=== PATIENT | male | born 1990 | race Caucasian/White ===

== ENCOUNTER 2017-08-17 18:19 | Emergency (ER) | payer OTHER ==
[2017-08-17] MEDS ORDERED: BENZOCAINE UNIT DOSE SPRAY HURRICAINE MM ONE (18:27)
[2017-08-17] MEDS ORDERED: TDAP ADULT 0.5 ML INJ (BOOSTRIX) IM ONE (18:27)
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
[2017-08-17] MEDS ORDERED: IBUPROFEN 600 MG TAB PO ONE (18:33)
[2017-08-17 20:04] VITALS: BP 152/95
== END 2017-08-17 20:03 | disposition home or self-care (01) ==
LOC: EEVIPCON 18:19
PROC: 0CQ0XZZ Repair Upper Lip, External Approach (ICD-10-PCS; principal; 2017-08-17)
DX: S01.511A Laceration without foreign body of lip, initial encounter (principal); F17.200 Nicotine dependence, unspecified, uncomplicated; Z23 Encounter for immunization; Y04.0XXA Assault by unarmed brawl or fight, initial encounter

== ENCOUNTER 2017-12-27 08:41 | Inpatient (IN) | payer MEDICAID, OTHER ==
--- NOTE | 2017-12-27 08:50 | EDPHY ---
H & P Time Seen by Provider: 12/27/17 08:47 HPI/ROS: CHIEF COMPLAINT: Chest pain HISTORY OF PRESENT ILLNESS: The patient is a 27-year-old man who was being arrested this morning for trespassing and burglary when he began complaining of chest pain. He admits to methamphetamine abuse yesterday but none today. Paramedics were called and he is brought to the emergency department. He was given aspirin EN route. EKG from paramedics and vital signs have been stable other than mild tachycardia. Patient is repeating my asking for drink water but otherwise denies complaints to me. Severity: Moderate Modifying factors: Improved initially with aspirin then returned. REVIEW OF SYSTEMS: Constitutional: denies: chills, fever, recent illness, recent injury EENTM: denies: blurred vision, double vision, nose congestion Respiratory: denies: cough, shortness of breath Cardiac: See HPI denies: chest pain, irregular heart rate, lightheadedness, palpitations Gastrointestinal/Abdominal: denies: abdominal pain, diarrhea, nausea, vomiting, blood streaked stools Genitourinary: denies: dysuria, frequency, hematuria, pain Musculoskeletal: denies: joint pain, muscle pain Skin: denies: lesions, rash, jaundice, bruising Neurological: denies: headache, numbness, paresthesia, tingling, dizziness, weakness Hematologic/Lymphatic: denies: blood clots, easy bleeding, easy bruising Immunologic/allergic: denies: HIV/AIDS, transplant 10 systems reviewed and negative except as noted EXAM: GENERAL: Well-appearing, well-nourished and in no acute distress. HEAD: Atraumatic, normocephalic. EYES: Pupils equal round and reactive to light, extraocular movements intact, sclera anicteric, conjunctiva are normal. ENT: TMs normal, nares patent, oropharynx clear without exudates. Moist mucous membranes. NECK: Normal range of motion, supple without lymphadenopathy or JVD. LUNGS: Breath sounds clear to auscultation bilaterally and equal. No wheezes rales or rhonchi. HEART: Regular rate and rhythm without murmurs, rubs or gallops. ABDOMEN: Soft, nontender, normoactive bowel sounds. No guarding, no rebound. No masses appreciated. BACK: No CVA tenderness, no spinal tenderness, step-offs or deformities EXTREMITIES: Normal range of motion, no pitting or edema. No clubbing or cyanosis. NEUROLOGICAL: Cranial nerves II through XII grossly intact. Normal speech, normal gait. 5/5 strength, normal movement in all extremities, normal sensation , normal reflexes PSYCH: Normal mood, normal affect. SKIN: Warm, dry, normal turgor, no visible rashes or lesions. Source: Patient, EMS - Medical/Surgical History Hx Asthma: No Hx Chronic Respiratory Disease: No Hx Diabetes: No Hx Cardiac Disease: No Hx Renal Disease: No Hx Cirrhosis: No Hx Alcoholism: No Hx HIV/AIDS: No Hx Splenectomy or Spleen Trauma: No Other PMH: none - Family History Significant Family History: No pertinent family hx - Social History Smoking Status: Never smoked Alcohol Use: Occasionally Drug Use: Other Constitutional: Initial Vital Signs Temperature (C) 37.4 C 12/27/17 08:53 Heart Rate 128 H 12/27/17 08:53 Respiratory Rate 16 12/27/17 08:53 Blood Pressure 125/93 H 12/27/17 08:53 O2 Sat (%) 91 L 12/27/17 08:53 O2 Delivery Mode Room Air Allergies/Adverse Reactions: No Known Allergies Allergy (Verified 12/27/17 10:31) Home Medications: Medication Instructions Recorded NK [No Known Home Meds] 08/17/17 Medical Decision Making - Diagnostics EKG Interpretation: An EKG obtained and was read and documented in trace view. Please see trace view for full reading and report. Sinus tachycardia, ST elevation anteriorly inconsistent from beat to beat Imaging: Discussed imaging studies w/ drill sharpener operator Radiologist ED Course/Re-evaluation: The patient remains tachycardic. His chest x-ray was read as bilateral pneumonia. I will initiate a sepsis workup. Will also repeat his EKG when his heart rate improves. There is some ST elevation anteriorly that is likely rate related. It is a consistent from beat to beat. 10:15 a.m. I discussed the case with Ashley who will accept to the medical service. Medical floor. The patient's heart rate is improving with fluids. Antibiotics have been ordered. Differential Diagnosis: Partial list of the Differential diagnosis considered include but were not limited to; arrhythmia, acute coronary disease, pneumothorax, polysubstance abuse and although unlikely based on the history and physical exam, I also considered pneumonia, trauma. Critical Care Time: Critical care time spent by me, Dr. Fowler exclusive with this patient was 35 minutes, exclusive of the PA time exclusive of procedures. The organ system that was at risk was pulmonary and cardiovascular and I gave IV fluids, antibiotics, consultation and admission to prevent worsening of the patient's condition - Data Points Laboratory Results: Laboratory Results 12/27/17 08:30 12/27/17 08:30 Medications Given: Acetaminophen (Tylenol) 500 - 1,000 mg PO Q6HRS PRN PRN Reason: Pain, Mild/Fever, Can Take PO Stop: 06/25/18 10:42 Last Admin: 12/28/17 21:10 Dose: 1,000 mg Benzonatate (Tessalon Pearles) 100 - 200 mg PO TID PRN PRN Reason: Cough, Mild Stop: 06/25/18 15:23 Last Admin: 12/28/17 14:44 Dose: 200 mg Guaifenesin (Mucinex) 600 mg PO BID DODIE Stop: 06/26/18 09:14 Last Admin: 12/28/17 21:10 Dose: 600 mg Azithromycin 500 mg/ Sodium (Chloride) 255 mls @ 255 mls/hr IV DAILY DODIE PRN Reason: Protocol Stop: 01/27/18 08:59 Last Admin: 12/28/17 08:55 Dose: 255 mls Sodium Chloride (Ns) 1,000 mls @ 150 mls/hr IV CONT DODIE Stop: 06/25/18 10:44 Last Admin: 12/28/17 10:47 Dose: 1,000 mls Ampicillin Sodium/Sulbactam (Sodium 3 gm/ Sodium Chloride) 100 mls @ 200 mls/ hr IV Q6HRS DODIE PRN Reason: Protocol Stop: 01/26/18 11:59 Last Admin: 12/28/17 23:21 Dose: 100 mls Nicotine (Nicoderm Cq) 21 mg TD DAILY DODIE Stop: 06/26/18 09:14 Last Admin: 12/28/17 10:16 Dose: 21 mg Ondansetron HCl (Zofran Odt) 4 mg PO Q4HRS PRN PRN Reason: Nausea/Vomiting, Use 1st Stop: 06/25/18 10:42 Last Admin: 12/28/17 02:01 Dose: 4 mg Tramadol HCl (Ultram) 50 mg PO Q6HRS PRN PRN Reason: Pain, Moderate Able to Take PO Stop: 06/26/18 09:13 Last Admin: 12/28/17 23:20 Dose: 50 mg Discontinued Medications Acetaminophen (Tylenol) 1,000 mg PO EDNOW ONE Stop: 12/27/17 09:09 Last Admin: 12/27/17 09:13 Dose: 1,000 mg Sodium Chloride (Ns) 2,000 mls @ 4,000 mls/hr 30 ml/kg infuse over 30 min ( 2000 ml) IV EDNOW ONE PRN Reason: Protocol Stop: 12/27/17 09:38 Last Admin: 12/27/17 09:16 Dose: 2,000 mls Azithromycin 500 mg/ Sodium (Chloride) 255 mls @ 255 mls/hr IV EDNOW ONE PRN Reason: Protocol Stop: 12/27/17 11:00 Last Admin: 12/27/17 10:59 Dose: 255 mls Ceftriaxone Sodium/Dextrose (Rocephin 1 Gm (Premix)) 50 mls @ 100 mls/hr IV EDNOW ONE PRN Reason: Protocol Stop: 12/27/17 10:29 Last Admin: 12/27/17 10:00 Dose: 50 mls Nicotine (Nicoderm Cq) 21 mg TD ONCE ONE Stop: 12/27/17 10:48 Last Admin: 12/27/17 11:00 Dose: 21 mg Departure - Departure Disposition: [facility] Acute Clinical Impression: Severe sepsis Pneumonia of both lower lobes Qualifiers: Pneumonia type: due to unspecified organism Qualified Code(s): J18.1 - Lobar pneumonia, unspecified organism Condition: Fair
[2017-12-27] MEDS ORDERED: ACETAMINOPHEN 500 MG TAB PO ONE (09:08)
[2017-12-27] MEDS ORDERED: NS 2,000 ML IV ONE (09:09)
--- NOTE | 2017-12-27 09:12 | CPEKG ---
Test Reason : OPEN Blood Pressure : / mmHG Vent. Rate : 129 BPM Atrial Rate : 130 BPM P-R Int : 158 ms QRS Dur : 074 ms QT Int : 285 ms P-R-T Axes : 020 036 047 degrees QTc Int : 418 ms Sinus tachycardia Probable left atrial enlargement ST elev, probable normal early repol pattern Confirmed by Jd Fowler ([id number]) on 12/27/2017 9:11:51 AM Referred By: Confirmed By:Jd Fowler
[2017-12-27 09:16] LABS: PLATELET COUNT 301 10^3/uL (150-400)
[2017-12-27 09:40] LABS: INR 1.07 (0.83-1.16); PROTIME(PATIENT) 14.1 SEC (12.0-15.0)
[2017-12-27] MEDS ORDERED: AZITHROMYCIN IV 500 MG in NS 250 ML IV ONE (10:01)
[2017-12-27] MEDS ORDERED: ONDANSETRON DISINTEGRATING 4 MG TAB PO PRN (10:43)
[2017-12-27] MEDS ORDERED: ONDANSETRON 4 MG/2 ML VIAL IVP PRN (10:43)
[2017-12-27] MEDS ORDERED: NICOTINE 21 MG/24 HR PATCH TD ONE (10:47)
--- NOTE | 2017-12-27 11:13 | GHP ---
DATE OF ADMISSION: 12/27/2017 Mr. Saeed is a 27-year-old gentleman with a history of meth use, who presents to the emergency depart ment with cough. He was actually being arrested for trespassing and burglary when he began complaini ng of chest pain. Upon presentation, he was found to be febrile. Further evaluation revealed bilateral lower lobe pneu monia. When I speak with the patient he is not particularly conversant. He is agitated with too muc h questioning. He acknowledges cough. It is not clear that he is having recent fevers or chills. He does smoke cigarettes. REVIEW OF SYSTEMS: Complete 10-point review of systems conducted negative as noted in the HPI. PAST MEDICAL HISTORY: Methamphetamine use. SOCIAL HISTORY: Methamphetamine use, uses cigarettes. FAMILY HISTORY: Reviewed and unremarkable. ALLERGIES: No known drug allergies. HOME MEDICATIONS: None. PHYSICAL EXAMINATION: PRESENTING VITALS: Temp 37.4 but became febrile to 38.5 in the emergency depa rtment, blood pressure 125/93, pulse 128, now 124, breathing 16 times a minute, 91% on room air. GEN ERAL: No acute distress, lying flat. HEENT: Sclerae anicteric. Oropharynx clear. Mucous membrane s are moist. There is poor dentition. NECK: Supple without lymphadenopathy or JVD. LUNGS: Show r honchi at the bases bilaterally. HEART: Tachycardic. S1, S2. ABDOMEN: Soft, nontender, nondisten ded. LOWER EXTREMITIES: No edema. Calves are nontender. SKIN: Without rash. NEUROLOGIC: Exam i s nonfocal. LABORATORY DATA: White count 18.7 with a left shift, hematocrit 44, platelets are 301,000, coags are normal. Venous lactate is elevated at 2.8. Chem-7 is normal. BUN and creatinine are 17 and 1.0. Chest x-ray interpreted by me shows bilateral airspace disease consistent with pneumonia. There is a greater infiltrate on the left. EKG interpreted by me shows sinus tachycardia with normal axis and intervals. No ST or T-wave changes. I discussed the case Dr. Jd Fowler. ASSESSMENT/PLAN: 27-year-old gentleman presents with sepsis and bilateral lower lobe pneumonia. 1. Sepsis. The source is lungs evidenced by fever, elevated lactate, leukocytosis source. He has r eceived IV fluids and antibiotics. We will follow his lactate to resolution. 2. Pneumonia with bilateral lower lobe pneumonia. We will send a respiratory virus panel. I worry about an aspiration event given his methamphetamine use. He was not tolerating greater questions. Dave forman received ceftriaxone in the emergency department. We will go ahead and switch that to Unasyn to co dev some anaerobes. 3. Methamphetamine use. We will follow. 4. Tobacco use. Will provide nicotine patch. DISPOSITION: Inpatient status, risk high. /[id number]/MODL
[2017-12-27] MEDS: NS 1,000 ML IV SCH (11:39)
--- NOTE | 2017-12-27 12:12 | PDMN ---
Medical Necessity Medical necessity: Pt meets IP criteria per MD & MCG M-160; est los >2 mn for eval/tx of sepsis & pneumonia w/tachycardia, elevated lactate & leukocytosis; requiring further monitoring, IVFs & IV abx; hx meth use; per H&P & order
[2017-12-27] MEDS: AMPICILLIN/SULBACTAM 3 GM in NS 100 ML IV SCH ×3 (12:25→23:56)
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
[2017-12-27] MEDS: BENZONATATE 100 MG CAP PO PRN (16:36)
[2017-12-28] MEDS: ACETAMINOPHEN 500 MG TAB PO PRN ×4 (00:01→21:10)
[2017-12-28] MEDS: BENZONATATE 100 MG CAP PO PRN ×2 (00:03→14:44)
[2017-12-28] MEDS: NS 1,000 ML IV SCH ×2 (01:56→10:47)
[2017-12-28] MEDS: AMPICILLIN/SULBACTAM 3 GM in NS 100 ML IV SCH ×4 (05:33→23:21)
[2017-12-28] MEDS: AZITHROMYCIN IV 500 MG in NS 250 ML IV SCH (08:55)
[2017-12-28] MEDS ORDERED: ALBUTEROL 3 ML DEYVIAL IH PRN (09:08)
--- NOTE | 2017-12-28 09:14 | HOSPPROG ---
Hospitalist Progress Note Assessment/Plan: 27 yo M w meth abuse admited w sepsis, b.l lower lobe pneumonia suspicious for aspiration sepsis: refused further lactate last night, agreeable this AM remains tachycardic suspect sepsis is resolving pneumonia: treat w unasyn and azithro possible aspiration tobacco use: nicotine patch cp: from coughing ADMIT EKG NON ISCHEMIC (INTERP[ BY ME) PROPH: LOW RISK DISPO: INPT Subjective: febrile overnight. refusing many labs, now amenable Objective: Vital Signs Temp Pulse Resp BP Pulse Ox 36.8 C 108 H 18 145/98 H 96 12/28/17 08:00 12/28/17 08:00 12/28/17 08:00 12/28/17 08:00 12/28/17 08:00 12/27/17 12/28/17 12/29/17 05:59 05:59 05:59 Intake Total 4992 Output Total 3500 1200 Balance 1492 -1200 PT 14.1 SEC (12.0-15.0) 12/27/17 09:20 INR 1.07 (0.83-1.16) 12/27/17 09:20 - Physical Exam Constitutional: no apparent distress, appears nourished Eyes: PERRL, anicteric sclera Ears, Nose, Mouth, Throat: moist mucous membranes, hearing normal Cardiovascular: regular rate and rhythym, no murmur, rub, or gallop Respiratory: other (b/l rhonchi. lower lobe predominate) Gastrointestinal: normoactive bowel sounds, soft, non-tender abdomen Genitourinary: no bladder fullness, No alonso in urethra Skin: warm, normal color Musculoskeletal: full muscle strength, no muscle tenderness Neurologic: AAOx3 ICD10 Worksheet Patient Problems: Problems Problem Status Onset Pneumonia of both lower lobes Acute Severe sepsis Acute
[2017-12-28 10:01] LABS: PLATELET COUNT 225 10^3/uL (150-400)
[2017-12-28] MEDS: NICOTINE 21 MG/24 HR PATCH TD SCH (10:16)
[2017-12-28] MEDS: traMADol 50 MG TAB PO PRN ×3 (10:17→23:20)
[2017-12-28] MEDS: guaiFENesin 600 MG TAB.ER PO SCH ×2 (10:47→21:10)
--- NOTE | 2017-12-28 13:50 | ASMTCMCOM ---
CM Note CM Note Notes: CM met with pt. Pt moved from [place] to [place] 2 years ago. He has been homeless, sometimes staying with 2 'girls" that he knows. He was referred to [facility], but did not like their Coordinated Entry requirements. He would like a fpc where he could walk in as needed, "I would just stay at a fpc like that". CM will explore resources, but it is unclear whether fpc can be found which does not require coordinated entry. Will explore further with pt. CM to follow. D/C Plan: TBD Date Signed: 12/28/2017 01:50 PM Electronically Signed By:Leslie Elies
[2017-12-28 23:41] VITALS: BP 139/78
[2017-12-29] MEDS: AMPICILLIN/SULBACTAM 3 GM in NS 100 ML IV SCH ×2 (05:16→12:56)
[2017-12-29] MEDS: NS 1,000 ML IV SCH (05:17)
[2017-12-29] MEDS: guaiFENesin 600 MG TAB.ER PO SCH (08:32)
[2017-12-29] MEDS: BENZONATATE 100 MG CAP PO PRN (08:32)
[2017-12-29] MEDS: NICOTINE 21 MG/24 HR PATCH TD SCH (08:32)
[2017-12-29] MEDS: traMADol 50 MG TAB PO PRN (08:32)
[2017-12-29] MEDS: AZITHROMYCIN IV 500 MG in NS 250 ML IV SCH (08:33)
--- NOTE | 2017-12-29 08:35 | HOSPPROG ---
Hospitalist Progress Note Assessment/Plan: 27 yo M w meth abuse admited w sepsis, b.l lower lobe pneumonia suspicious for aspiration sepsis: refused further lactate last night, agreeable this AM remains tachycardic septic physiology has resolved pneumonia: treat w unasyn and azithro possible aspiration tobacco use: nicotine patch cp: from coughing non ischemic ekg DISPO: home today > 30 minutes Subjective: on RA. labs improved. nasal wash + for rhino/enertovirus Objective: Vital Signs Temp Pulse Resp BP Pulse Ox 36.8 C 92 16 139/78 H 96 12/28/17 23:38 12/28/17 23:38 12/28/17 23:38 12/28/17 23:38 12/28/17 23:38 Microbiology 12/28/17 09:20 Respiratory Panel (PCR) - Final Nasal, Sinus - Swab Human Rhinovirus/Enterovirus Laboratory Results 12/28/17 09:20 12/28/17 09:20 12/28/17 12/29/17 12/30/17 05:59 05:59 05:59 Intake Total 4992 7053 Output Total 3500 3400 Balance 1492 3653 PT 14.1 SEC (12.0-15.0) 12/27/17 09:20 INR 1.07 (0.83-1.16) 12/27/17 09:20 - Physical Exam Constitutional: no apparent distress, appears nourished Eyes: PERRL, anicteric sclera Ears, Nose, Mouth, Throat: moist mucous membranes, hearing normal Cardiovascular: regular rate and rhythym, no murmur, rub, or gallop, No tachycardia Respiratory: no respiratory distress, other (scattered rhonchi, no wheeze, improved), No no rales or rhonchi Gastrointestinal: normoactive bowel sounds, soft, non-tender abdomen Genitourinary: no bladder fullness Skin: warm, normal color Musculoskeletal: full muscle strength, no muscle tenderness Neurologic: AAOx3 ICD10 Worksheet Patient Problems: Problems Problem Status Onset Pneumonia of both lower lobes Acute Severe sepsis Acute
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
--- NOTE | 2017-12-29 13:32 | ASDISCHSUM ---
Discharge Information Plan Status:Homeless/Intermediate Medically Cleared to Leave: Discharge Date: CM D/C Disposition:Streets (Homeless) ADT D/C Disposition: Projected Discharge Date: Transportation at D/C:Bus Ticket Discharge Delay Reason: Follow-Up Date: Discharge Slot: Final Diagnosis: Placement Information Patient Contact Information Contact Name:LAM Relationship:Mother Address: Work Phone: City: [facility] Phone: State/Zip Code: Email: Financial Information Financial Class:Medicaid Primary Plan Desc:[employer] Primary Plan Number:[id number] Secondary Plan Desc: Secondary Plan Number: Assessment Information LACE LACE Length of stay for Answers: 2 days current admission Acuity / Level of Answers: Yes Care: Did the patient have an inpatient admission? # of Emergency department Answers: 1-2 visits in the last 6 months Social determinants Answers: History of substance abuse (ETOH, street drugs, prescription drugs, etc.) Homelessness (street, snf) Lack of community resources and/or lack of social support (no pcp, lives alone, transportation, kane d) Score: 16 Date Signed: 12/29/2017 01:31 PM Electronically Signed By:Leslie Elise [facility] CM Progress Note CM Note CM Note Notes: Chart reviewed.27 year old male admitted via ED after complaining of chest pain during arrest for burglary. He is admitted with fever, tachycardia and pneumonia. He is transient and a meth addict per report. CM visit deferred as he is sleeping. CM to follow for needs. Plan: TBD Date Signed: 12/27/2017 02:00 PM Electronically Signed By:Mayra Senkow, RN [facility] Progress Note CM Note CM Note Notes: CM met with pt. Pt moved from [place] to [place] 2 years ago. He has been homeless, sometimes staying with 2 'girls" that he knows. He was referred to [facility], but did not like their Coordinated Entry requirements. He would like a snf where he could walk in as needed, "I would just stay at a snf like that". CM will explore resources, but it is unclear whether snf can be found which does not require coordinated entry. Will explore further with pt. CM to follow. D/C Plan: TBD Date Signed: 12/28/2017 01:50 PM Electronically Signed By:Leslie Elise Intervention Information Intervention Type:*Incorrect Registration Date of Service:12/27/2017 11:59 AM Patient Type:Observation Staff Member:SONDRA Huddleston Courtney Hours: Discipline: Severity: Comment:
== END 2017-12-29 13:30 | disposition home or self-care (01) | DRG 720 ==
LOC: EDUNIT# → OBSVTOIN 10:25 → F1N 11:28
PROVIDERS: ADMIT Internal Medicine; ATTEND Internal Medicine
DX: A41.9 Sepsis, unspecified organism (principal); J15.9 Unspecified bacterial pneumonia; B97.89 Other viral agents as the cause of diseases classified elsewhere; F15.90 Other stimulant use, unspecified, uncomplicated; Z72.0 Tobacco use
CPT/HCPCS: 96365; J0295; J0456; J0696

== ENCOUNTER 2018-02-16 10:56 | Emergency (ER) | payer MEDICAID ==
--- NOTE | 2018-02-16 11:03 | EDPHY ---
H & P Time Seen by Provider: 02/16/18 11:00 HPI/ROS: HPI: This is a 27-year-old male who presents with Chief Complaint: Left shoulder injury, medical clearance Location: Left shoulder Quality: Injury Duration: Prior to arrival Signs and Symptoms: No bleeding, no radiation, no numbness, no weakness, no tingling, no incontinence, + decreased range of motion, no swelling, + pain, no fever Timing: Acute Severity: Mild Context: Patient presents accompanied by [facility] Police for medical clearance. Patient was found to be intoxicated outside with methamphetamine and needles surrounding him. When police arrived, patient ran and fell landing on his left shoulder. Denies LOC/head injury/neck pain/dizziness/nausea/ vomiting/amnesia. Patient is tearful at this time. He reports that he is right -hand dominant. He is handcuffed with his right wrist to the ER stretcher. When asked to move his upper left extremity he initially refused. RN then asked him to take office jacket and he was able to use his left upper extremity without any difficulty or decreased range of motion. He complains of pain in the left anterior shoulder. Denies radiation, weakness, paresthesias. Modifying Factors: None Comment: ROS: A comprehensive 10 system review of systems is otherwise negative aside from elements mentioned in the history of present illness. MEDICAL/SURGICAL/SOCIAL HISTORY: Medical history: Generally healthy. Does not take any regular medications. Surgical history: Denies Social history: Intravenous methamphetamine user. Smoker. CONSTITUTIONAL: Tearful, untidy, adult white male, awake and alert, no obvious distress HEENT: Atraumatic and normocephalic. NECK: supple, no midline tenderness, flexion 45 degrees, extension 45 degrees, right and left lateral flexion 45 degrees. No meningismus. Cardiovascular: Normal S1/S2, tachycardia, regular rhythm, without murmur rub or gallop. PULMONARY/CHEST: Symmetrical and nontender. no crepitus. Clear to auscultation bilaterally. Good air movement. No accessory muscle usage. ABDOMEN: Soft, nondistended, nontender, no ecchymosis. EXTREMITIES: 2/2 pulses, strength 5/5, left SHOULDER: Arc test abduction to 180, abduction to 45, horizontal flexion 130, horizontal extension to 45, deltoid strength 5/5. No pain with Neer test/Quintana test (impingement). No Tenderness to palpation over AC joint. No clavicle deformity. Left ELBOW: Full extension to 180, flexion to 150, no tenderness over medial epicondyle, no tenderness over lateral epicondyle, no effusion. Left WRIST: Extension to 70, flexion to 80, radial deviation to 20 degree, ulnar deviation to 30, no scaphoid tenderness, no tenderness over ulnar styloid, no tenderness over radial styloid. DIP/PIP/MCP flexion/extension intact with good light touch sensation. no deformities, no clubbing, no cyanosis or edema. NEUROLOGICAL: no focal neuro deficits. GCS 15. Light touch sensation intact. SKIN: Warm and dry, dirt noted to be under all fingernails, no erythema. no rash. Good capillary refill. Source: Patient, RN/MD, EMS Exam Limitations: Intoxication - Medical/Surgical History Hx Asthma: No Hx Chronic Respiratory Disease: No Hx Diabetes: No Hx Cardiac Disease: No Hx Renal Disease: No Hx Cirrhosis: No Hx Alcoholism: No Hx HIV/AIDS: No Hx Splenectomy or Spleen Trauma: No Other PMH: none - Social History Smoking Status: Never smoked Constitutional: Initial Vital Signs Temperature (C) 36.9 C 02/16/18 11:05 Heart Rate 125 H 02/16/18 11:05 Respiratory Rate 18 02/16/18 11:05 Blood Pressure 129/100 H 02/16/18 11:05 O2 Sat (%) 95 02/16/18 11:05 O2 Delivery Mode Room Air Allergies/Adverse Reactions: No Known Allergies Allergy (Verified 12/27/17 10:31) Home Medications: Medication Instructions Recorded Amoxicillin/Clavulanate Pot 875 mg PO BID #10 tab 12/29/17 [Augmentin 875 MG TAB (*)] traMADol [Ultram 50 mg (*)] 50 mg PO Q6HRS PRN #12 tab 12/29/17 Medical Decision Making ED Course/Re-evaluation: Vital signs reviewed and show tachycardia which is most likely due to methamphetamine use Does not meet M1 hold or MIH criteria Patient was able to take off jacket without any difficulty. Left upper extremity has full range of motion with no obvious deformity. No imaging indicated at this time. Advised supportive care. Patient is appropriate to be discharged to the [facility]pc. No signs of neurovascular compromise/tenting of skin/compartment syndrome/ extremities and joints examined above and below area of concern and are neurovascularly intact. This patient was seen under the supervision of my secondary supervising physician. I evaluated care for this patient independently. Discussed this patient with Dr. Bhatia who did not see the patient. Differential Diagnosis: Differential diagnosis includes but is not limited to AC joint separation, humeral fracture, clavicle fracture, rotator cuff injury, labral tear. Departure - Departure Disposition: Law Enforcement/Court/[facility] Clinical Impression: Methamphetamine abuse Injury of left shoulder Qualifiers: Encounter type: initial encounter Qualified Code(s): S49.92XA - Unspecified injury of left shoulder and upper arm, initial encounter Condition: Good Instructions: Shoulder Sprain (ED) Additional Instructions: Take Tylenol 650 mg every 4 hours and/or Ibuprofen 600 mg every 8 hours with food as needed for pain. Apply ice for 30 minutes at a time; 2-3 times per day for the next 1-2 days. If symptoms persist greater than 5-7 days, follow-up with the [facility] for further evaluation. Medically Cleared to be discharged to fpc. See [facility] for follow-up instructions and prescriptions. Referrals: [facility],. [Clinic] - As per Instructions
[2018-02-16 11:07] VITALS: BP 129/100
== END 2018-02-16 11:10 ==
LOC: EDUNIT#
DX: S49.92XA Unspecified injury of left shoulder and upper arm, initial encounter (principal); F15.10 Other stimulant abuse, uncomplicated; W19.XXXA Unspecified fall, initial encounter; Y93.02 Activity, running; Y92.9 Unspecified place or not applicable; Y99.9 Unspecified external cause status
CPT/HCPCS: 96365